=== PATIENT | female | born 1995 | race Caucasian/White ===

== ENCOUNTER 2017-04-09 17:46 | Emergency (ER) | payer BC ==
[2017-04-09] MEDS ORDERED: Ibuprofen TAB* 600 MG PO ONE (18:17)
--- NOTE | 2017-04-09 18:20 | UC ---
UC General HPI - HPI Summary HPI Summary: Patient woke up with a fever of 102, body aches and chills, just hurts all over. - History of Current Complaint Stated Complaint: ACHY BODY, FEVER Time Seen by Provider: 04/09/17 18:11 Hx Obtained From: Patient Hx Last Menstrual Period: 12/09/13 Onset/Duration: Sudden Onset, Lasting Hours Timing: Constant Onset Severity: Severe Current Severity: Severe Associated Signs & Symptoms: Positive: Fever, Headache - Allergy/Home Medications Allergies/Adverse Reactions: Allergies Allergy/AdvReac Type Severity Reaction Status Date / Time Acetaminophen [From Tylenol] Allergy Rash Verified 04/09/17 18:20 PMH/Surg Hx/FS Hx/Imm Hx Previously Healthy: Yes - Surgical History Surgical History: None - Family History Known Family History: Negative: Blood Disorder - Social History Alcohol Use: None Substance Use Type: None Smoking Status (MU): Never Smoked Tobacco - Immunization History Vaccination Up to Date: Yes Review of Systems Constitutional: Fever, Chills, Fatigue Skin: Negative Eyes: Negative ENT: Sore Throat Respiratory: Cough Cardiovascular: Negative Gastrointestinal: Negative Genitourinary: Negative Motor: Negative Musculoskeletal: Arthralgia, Myalgia Neurological: Headache Psychological: Negative Is Patient Immunocompromised?: No All Other Systems Reviewed And Are Negative: Yes Physical Exam Triage Information Reviewed: Yes Appearance: Well-Nourished, Ill-Appearing, Pain Distress Vital Signs Reviewed: Yes Eye Exam: Normal ENT: Positive: Pharyngeal erythema, TM dull, Tonsillar swelling, Tonsillar exudate Dental Exam: Normal Neck exam: Normal Neck: Positive: Supple, Nontender, No Lymphadenopathy Respiratory Exam: Normal Respiratory: Positive: Chest non-tender, Lungs clear, Normal breath sounds Cardiovascular Exam: Normal Cardiovascular: Positive: No Murmur, Pulses Normal Abdominal Exam: Normal Abdomen Description: Positive: Nontender, No Organomegaly, Soft Bowel Sounds: Positive: Present Musculoskeletal Exam: Normal Musculoskeletal: Positive: Strength Intact Neurological Exam: Normal Neurological: Positive: Alert, Muscle Tone Normal Psychological Exam: Normal Skin Exam: Normal Course/Dx - Course Course Of Treatment: hx obtained, exam performed ,meds reviewed, rapid strep and flu obtained and are negative. ibuprofen given. reviewed symptoms with patient started on amoxicilin for tonsillitis, advised her to follow up in ER if symptoms worsen or dont improve in 24 hours. - Differential Dx - Multi-Symptom Provider Diagnoses: fever. tonsillitis. body aches. headache Discharge - Discharge Plan Condition: Stable Disposition: HOME Patient Education Materials: Tonsillitis (ED) Referrals: Sue Garcia MD [Primary Care Provider] - Additional Instructions: 1. take the medication as prescribed. 2. If you take a turn for the worse, or are not improving in 24 hours, follow up in the ER.
[2017-04-09 18:26] VITALS: BP 123/61
[2017-04-09] MEDS ORDERED: Amoxicillin PO (*) 500 MG CAP PO ONE (18:47)
== END 2017-04-09 19:03 | disposition home or self-care (01) ==
LOC: UCCORT 17:46
DX: R50.9 Fever, unspecified (principal); J03.90 Acute tonsillitis, unspecified; M79.1 Myalgia; R51 Headache; Z88.6 Allergy status to analgesic agent
CPT/HCPCS: 87502; 87651; 99212; A9270-GY; G0463

== ENCOUNTER 2017-09-24 06:22 | Inpatient (IN) | payer SELFPAY ==
[~2017-09-24 06:22] MED LIST: Buffered Lidocaine 0.9% SYRIN* 5 ML/SYR SYRINGE INTRADERM ONE
[2017-09-24] MEDS ORDERED: Ondansetron INJ* 2 MG/ML VIAL ONE (06:46)
[2017-09-24] MEDS ORDERED: Dexamethasone IV* 4 MG/ML 1 ML (4 MG) ONE (06:46)
[2017-09-24] MEDS ORDERED: ceFAZolin 2 GM in 100 MLS NS (*) BAG IVPB ONE (06:47)
[2017-09-24] MEDS ORDERED: Buffered Lidocaine 0.9% SYRIN* 5 ML/SYR SYRINGE ONE (06:47)
[2017-09-24] MEDS ORDERED: Scopolamine 1.5 mg* PATCH ONE (06:47)
[2017-09-24] MEDS ORDERED: Bupivacaine 0.5% SDV PF* 10-30ML VIAL ONE (07:04)
[2017-09-24] MEDS ORDERED: Methylene Blue 0.5 %* 50 MG/10 ML AMP IV ONE (07:04)
[2017-09-24] MEDS ORDERED: fentaNYL* 50 MCG/ML 2 ML VIAL (100 MCG VIAL) ONE ×3 (07:19→10:47)
[2017-09-24] MEDS ORDERED: Midazolam* 1 MG/ML 2 ML VIAL (2 MG) ONE (07:19)
[2017-09-24] MEDS ORDERED: Rocuronium* 10 MG/ML VIAL ONE (07:38)
[2017-09-24] MEDS ORDERED: Propofol* 10 MG/ML 20 ML BTL IV PUSH ONE (07:38)
[2017-09-24] MEDS ORDERED: Hetastarch in NS* 500 ML IV ONE (08:25)
[2017-09-24] MEDS ORDERED: fentaNYL* 50 MCG/ML 2 ML VIAL (100 MCG VIAL) IV PRN (08:27)
[2017-09-24] MEDS ORDERED: HYDROmorphone INJ* 1 MG/ML CARPUJECT SYRINGE IV PRN (08:27)
[2017-09-24] MEDS ORDERED: Ondansetron INJ* 2 MG/ML VIAL IV PRN ×2 (08:27→11:34)
[2017-09-24] MEDS ORDERED: PROCHLORPERAZINE INJ 5 MG/ML 2 ML VIAL IV PRN (08:27)
[2017-09-24] MEDS ORDERED: oxyCODONE TAB* 5 MG TAB PO PRN (08:27)
[2017-09-24] MEDS ORDERED: Naloxone* 0.4 MG/ML 1 ML VIAL IV PRN (08:27)
[2017-09-24] MEDS ORDERED: diPHENhydraMINE IV* 50 MG/ML 1 ml VIAL (BENADRYL) IV PRN ×2 (08:27→13:38)
[2017-09-24] MEDS ORDERED: Magnesium Hydroxide LIQ* 30 ML UDC PO PRN (11:47)
[2017-09-24] MEDS ORDERED: diPHENhydraMINE IV* 25 MG in NS 0.9% 50 ML* 50 ML IVPB PRN (11:47)
[2017-09-24] MEDS ORDERED: diPHENhydraMINE PO* 25 MG PO PRN ×2 (11:47)
[2017-09-24] MEDS ORDERED: Al Hydrox/Mg Hydrox/Simet LIQ* 30 ML UDC PO PRN (11:47)
[2017-09-24] MEDS: traMADol TAB* 50 MG PO PRN (13:58)
[2017-09-24] MEDS: HYDROmorphone INJ* 2 MG/ML CARPUJECT SYRINGE IV PRN (19:02)
[2017-09-24] MEDS: Docusate CAP* 100 MG PO SCH (20:33)
[2017-09-25] MEDS: HYDROmorphone INJ* 2 MG/ML CARPUJECT SYRINGE IV PRN ×2 (02:49→08:35)
[2017-09-25] MEDS: traMADol TAB* 50 MG PO PRN (08:37)
[2017-09-25] MEDS: Docusate CAP* 100 MG PO SCH (08:37)
[2017-09-25 08:39] VITALS: BP 93/44
[2017-09-27] MEDS ORDERED: Scopolamine PATCH Remove* 1 NOTE MISC PATCH OFF ONE (08:29)
--- NOTE | 2017-10-04 07:18 | DS ---
CC: Dr. Sekou Keller; Jennifer Lopez NP* DISCHARGE SUMMARY: DATE OF ADMISSION: 09/24/17 DATE OF DISCHARGE: 09/25/17 PRINCIPAL DIAGNOSIS: Cosmetic surgery. SUMMARY: The patient is a 21-year-old white female who lost over 100 pounds over the past 2 years with diet and exercise. She presented with complaints of "loose, flabby" over-hanging skin in the abdomen. Her highest weight was 290 pounds prior to the weight loss, and current weight is 180 pounds, which has been stable for greater than 9 months. Preoperative examination on the body contour demonstrated moderately severe skin laxity in the abdomen with an overhang of up to 3.5 cm. Pinch test in the upper abdomen was 3.3 cm, and lower abdomen was 3.5 cm, in the hips 3.3 cm, in the lateral thighs 3.5 cm. After discussing treatment alternatives, possible benefits and material risks in detail with the patient, she elected to proceed with cosmetic abdominoplasty. The patient was taken to the operating room on 09/24/17 and underwent complete abdominoplasty under general anesthesia. She tolerated the surgery well with no complications. A VAC Prevena dressing was applied at the end of the procedure and 2 Ronal-Wade drains were left in place. Her postoperative convalescent course in the hospital was uncomplicated. By the next morning, she was comfortable and ambulatory. The VAC Prevena dressing was functioning well and left in place. She was discharged home with 2 Ronal- Wade drains in place. Arrangements were made for followup in my office in several days. The patient was given instructions, including activity level, wound care medication, and followup. [id number]/[facility] #: [id number] [facility]EREscobar
== END 2017-09-25 10:50 | disposition home or self-care (01) | DRG 607 ==
LOC: AA 06:22 → SSU 12:45
PROVIDERS: ADMIT Plastic Surgery; ATTEND Plastic Surgery
PROC: 0HB7XZZ Excision of Abdomen Skin, External Approach (ICD-10-PCS; principal; 2017-09-24 07:30)
DX: Z41.1 Encounter for cosmetic surgery (principal); L98.7 Excessive and redundant skin and subcutaneous tissue; Z79.899 Other long term (current) drug therapy; Z88.6 Allergy status to analgesic agent
CPT/HCPCS: 81025; 88300; A9270-GY; J1100; J1170; J2250; J2405; J2704; J3010

== ENCOUNTER 2018-12-21 19:24 | Emergency (ER) | payer BC ==
[2018-12-21 19:33] VITALS: BP 108/70
--- NOTE | 2018-12-21 20:04 | UC ---
Throat Pain/Nasal Garcia HPI - HPI Summary HPI Summary: ONSET OF SORE THROAT AND PAIN WITH SWALLOWING THIS MORNING. NO FEVER, NAUSEA/ VOMITING. NO COUGH OR CONGESTION. IS CONCERNED ABOUT STREP. - History of Current Complaint Chief Complaint: UCRespiratory Stated Complaint: POSSIBLE STREP Time Seen by Provider: 12/21/18 19:48 Hx Obtained From: Patient Hx Last Menstrual Period: 1 MONTH AGO Onset/Duration: Gradual Onset, Lasting Hours, Still Present Severity: Moderate Pain Intensity: 4 Pain Scale Used: 0-10 Numeric Cough: None Associated Signs & Symptoms: Positive: Negative - Allergies/Home Medications Allergies/Adverse Reactions: Allergies Allergy/AdvReac Type Severity Reaction Status Date / Time acetaminophen [From Tylenol] Allergy Rash Verified 12/21/18 19:33 Home Medications: Home Medications Control* 1 tab PO DAILY 12/21/18 [History Confirmed 12/21/18] Hair/Skin/Nail Vitamin* 1 tab PO DAILY 12/21/18 [History Confirmed 12/21/18] PMH/Surg Hx/FS Hx/Imm Hx Previously Healthy: Yes - Surgical History Surgical History: Yes Surgery Procedure, Year, and Place: wisdom teeth extraction in dental office 2011 [place], ABDOMINOPLASTY - Family History Known Family History: Positive: Non-Contributory Negative: Blood Disorder - Social History Alcohol Use: None Alcohol Amount: socially Substance Use Type: None Smoking Status (MU): Never Smoked Tobacco - Immunization History Most Recent Influenza Vaccination: Fall 2016 Most Recent Pneumonia Vaccination: never Vaccination Up to Date: Yes Review of Systems All Other Systems Reviewed And Are Negative: Yes Constitutional: Positive: Fatigue ENT: Positive: Sore Throat Respiratory: Positive: Negative Cardiovascular: Positive: Negative Gastrointestinal: Positive: Negative Physical Exam Triage Information Reviewed: Yes Appearance: Well-Appearing, No Pain Distress, Well-Nourished Vital Signs: Initial Vital Signs Temp 98.7 F 12/21/18 19:30 Pulse 74 12/21/18 19:30 Resp 16 12/21/18 19:30 BP 108/70 12/21/18 19:30 Pulse Ox 100 12/21/18 19:30 Laboratory Tests 12/21/18 19:38 Group A Strep Rapid Negative Eyes: Positive: Conjunctiva Clear ENT: Positive: Hearing grossly normal, TMs normal, Tonsillar exudate. Negative : Pharyngeal erythema, Tonsillar swelling, Muffled voice Neck: Positive: Supple, Tenderness @ - SPFL CERVICAL LAD, Enlarged Nodes @ - SPFL CERVICAL LAD Respiratory Exam: Normal Cardiovascular Exam: Normal Abdomen Description: Positive: Soft Musculoskeletal: Positive: No Edema Neurological: Positive: Alert Psychological: Positive: Age Appropriate Behavior Skin: Negative: Rashes Throat Pain/Nasal Course/Dx - Differential Dx/Diagnosis Provider Diagnosis: Acute tonsillitis Discharge - Sign-Out/Discharge Documenting (check all that apply): Patient Departure All imaging exams completed and their final reports reviewed: No Studies - Discharge Plan Condition: Stable Disposition: HOME Patient Education Materials: Tonsillitis (ED) Forms: *Work Release Referrals: [facility] [Outside] - If Needed Additional Instructions: STREP TEST NEGATIVE. THROAT CULTURE SENT TO CONFIRM. WE WILL CALL YOU IF POSITIVE. YOUR SYMPTOMS ARE LIKELY VIRALLY MEDIATED AND SHOULD RESOLVE ON THEIR OWN WITH TIME. NO INDICATION FOR ANTIBIOTICS AT PRESENT. REST, HYDRATE, OTC MEDS NEEDED. SEEK FOLLOW-UP IF YOU ARE NOT IMPROVING OVER THE NEXT 1-2 WEEKS. CALL THE NUMBER BELOW FOR ASSISTANCE IN ESTABLISHING WITH A PCP An additional resource available to assist in finding the appropriate physician for your health care needs is the [facility] ([facility]). You may contact them by calling [phone]. - Billing Disposition and Condition Condition: STABLE Disposition: Home
== END 2018-12-21 20:00 | disposition home or self-care (01) ==
LOC: UCEAST 19:24
DX: J03.90 Acute tonsillitis, unspecified (principal)
CPT/HCPCS: 87070; 87651; 99211; G0463

== ENCOUNTER 2018-12-25 07:11 | Emergency (ER) | payer BC ==
[2018-12-25 07:38] VITALS: BP 114/70
--- NOTE | 2018-12-25 08:05 | UC ---
Throat Pain/Nasal Garcia HPI - HPI Summary HPI Summary: 4 days of progressively severe sore throat with dysphagia, now with second negative rapid strep and negative full throat culture done on 12/21/18. took 2 doses of amoxicillin yesterday with improvement. 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 - History of Current Complaint Chief Complaint: UCGeneralIllness Stated Complaint: SORE THROAT Time Seen by Provider: 12/25/18 07:41 Hx Obtained From: Patient Hx Last Menstrual Period: 11/24/18 ?: No Onset/Duration: Gradual Onset, Lasting Days - 4 Severity: Moderate Pain Intensity: 8 Cough: None Associated Signs & Symptoms: Positive: Dysphagia. Negative: Sinus Discomfort, Nasal Discharge, Fever - Epiglottits Risk Factors Epiglottis Risk Factors: Negative - Allergies/Home Medications Allergies/Adverse Reactions: Allergies Allergy/AdvReac Type Severity Reaction Status Date / Time acetaminophen [From Tylenol] Allergy Rash Verified 12/21/18 19:33 Home Medications: Home Medications Amoxicillin 1 tab PO ONCE 12/25/18 [History Confirmed 12/25/18] Ibuprofen [Advil] 800 mg PO ONCE 12/25/18 [History Confirmed 12/25/18] PMH/Surg Hx/FS Hx/Imm Hx Previously Healthy: Yes - Surgical History Surgical History: Yes Surgery Procedure, Year, and Place: wisdom teeth extraction in dental office 2011 [place], ABDOMINOPLASTY 2018 - Family History Known Family History: Positive: Non-Contributory Negative: Blood Disorder - Social History Occupation: Employed Full-time Lives: With Family Alcohol Use: Occasionally Alcohol Amount: socially Substance Use Type: None Smoking Status (MU): Never Smoked Tobacco - Immunization History Most Recent Influenza Vaccination: Fall 2016 Most Recent Pneumonia Vaccination: never Vaccination Up to Date: Yes Review of Systems All Other Systems Reviewed And Are Negative: Yes Constitutional: Positive: Fatigue Skin: Positive: Negative Eyes: Positive: Negative ENT: Positive: Sore Throat Respiratory: Negative: Shortness Of Breath, Cough Gastrointestinal: Positive: Other - abdominal sensitivity persistent since abdominoplasty. Decreased appetite.. Negative: Abdominal Pain Genitourinary: Positive: Negative Motor: Positive: Negative Neurovascular: Positive: Negative Musculoskeletal: Positive: Negative Neurological: Negative: Headache Psychological: Positive: Negative Physical Exam Triage Information Reviewed: Yes Appearance: Ill-Appearing, Pain Distress - mild Vital Signs: Initial Vital Signs Temp 98.6 F 06/06/19 07:32 Pulse 89 12/25/18 07:32 Resp 18 12/25/18 07:32 BP 114/70 12/25/18 07:32 Pulse Ox 100 12/25/18 07:32 Eyes: Positive: Conjunctiva Clear ENT: Positive: Pharyngeal erythema, Tonsillar swelling, Tonsillar exudate - bilateral streaky exudate. Dental Exam: Normal Neck: Positive: Supple, Nontender, Enlarged Nodes @ - large tonsillar nodes, few posterior cervical and occipital nodes. Respiratory: Positive: Lungs clear, Normal breath sounds Cardiovascular: Positive: RRR, No Murmur Abdomen Description: Positive: No Organomegaly, Soft, Other: - diffuse tenderness post abdominoplasty Musculoskeletal Exam: Normal Neurological: Positive: Alert, Muscle Tone Normal Psychological Exam: Normal Skin Exam: Normal Throat Pain/Nasal Course/Dx - Course Course Of Treatment: prednisone to improve swallowing (declined solumedrol injection). Rest, fluids, labs drawn. - Differential Dx/Diagnosis Differential Diagnosis/HQI/PQRI: Laryngitis, Tonsillitis, Other - mono Provider Diagnosis: Tonsillitis with exudate Discharge - Sign-Out/Discharge Documenting (check all that apply): Patient Departure All imaging exams completed and their final reports reviewed: No Studies - Discharge Plan Condition: Stable Disposition: HOME Prescriptions: predniSONE [Prednisone 20 MG TAB] 2 tab PO DAILY #4 tablet Patient Education Materials: Mononucleosis (ED) Referrals: No Primary Care Phys,NOPCP [Primary Care Provider] - Additional Instructions: Findings today suggest a viral tonsillitis, most likely mono given the enlarged lymph nodes. Confirmatory lab tests are pending. use of steroid should decrease tonsillar swelling and allow you to stay hydrated. Side effects include mood change, insomnia, some gi upset. Please take 40mg each of the next 2 mornings with food. You can call for results tomorrow morning if you have not had a call regarding results. - Billing Disposition and Condition Condition: STABLE Disposition: Home
[2018-12-25] MEDS: predniSONE TAB* 20 MG PO ONE (08:22)
[2018-12-25 14:00] LABS: ABS Basophils 0.1 10^3/ul (0-0.2); ABS Monocytes 0.6 10^3/ul (0-0.8); ABS Neutrophils 3.9 10^3/ul (1.5-7.7); Eosinophil % 0.4 %; Hematocrit 40 % (35-47); Hemoglobin 13.6 g/dL (12.0-16.0); Lymphocyte % 51.6 %; Mean Corpuscular HGB Conc 34 g/dL (31-36); Mean Corpuscular Hemoglobin 27 pg (27-31); Mean Corpuscular Volume 80 fL (80-97); Platelet Count 168 10^3/uL (150-450); Red Blood Count 4.95 10^6 /uL (3.70-4.87); Red Cell Distribution Width 14 % (10-15); White Blood Count 9.7 10^3/uL (3.5-10.8)
[2018-12-25 14:06] LABS: Albumin 3.5 g/dL (3.2-5.2); Calcium 8.8 mg/dL (8.6-10.3); Potassium 4.4 mmol/L (3.5-5.0); Total Bilirubin 0.5 mg/dL (0.2-1.0)
[2018-12-25 14:12] LABS: EGFR Non-African American 87.6 (>60); Globulin 3.4 g/dL (2-4); Total Protein 6.9 g/dL (6.4-8.9)
[2018-12-27 12:24] LABS: EBV Capsid Ag IgG Ab Negative (Negative); EBV Capsid Ag IgM Ab Positive (Negative); Epstein-Barr Nuclear Antigen Negative (Negative)
== END 2018-12-25 08:27 | disposition home or self-care (01) ==
LOC: UCCORT 07:11
DX: J03.90 Acute tonsillitis, unspecified (principal)
CPT/HCPCS: 36415; 80053; 85025; 86308; 86664; 86665; 87651; 99212; G0463; J7512

== ENCOUNTER 2019-10-08 10:19 | Emergency (ER) | payer BC ==
[2019-10-08] MEDS ORDERED: Lidocaine PATCH 5%* 1 PATCH TRANSDERM ONE (10:34)
[2019-10-08] MEDS ORDERED: Cyclobenzaprine TAB* 10 MG PO ONE (10:34)
--- NOTE | 2019-10-08 10:34 | ED ---
Back Pain - HPI Summary HPI Summary: 23 year old female presents with back pain since yesterday. States she was leaning down and felt a pull on her back. States is worse when she moves. She had a similar pain many months ago. She denies any pain into her legs. No numbness or tingling. No loss of bladder or bowel. No saddle anesthesia. She denies any fevers fevers. Has no medical conditions. Has been taking ibuprofen for pain. - History of Current Complaint Chief Complaint: EDBackInjuryPain Stated Complaint: BACK PAIN PER PT Time Seen by Provider: 10/08/19 10:25 Hx Last Menstrual Period: 11/24/18 Pain Intensity: 6 - Allergies/Home Medications Allergies/Adverse Reactions: Allergies Allergy/AdvReac Type Severity Reaction Status Date / Time acetaminophen [From Tylenol] Allergy Rash Verified 10/08/19 10:23 Home Medications: Home Medications Cyclobenzaprine TAB* [Flexeril 10 MG TAB*] 10 mg PO TID PRN #15 tab 10/08/19 [Rx ] Etonogest/Eth.estradiol (Nf) [Nuvaring Vaginal Ring] 1 each VAGINAL ONCE [History Confirmed 10/08/19] PMH/Surg Hx/FS Hx/Imm Hx Endocrine/Hematology History: Denies: Hx Diabetes, Hx Thyroid Disease Respiratory History: Denies: Hx Asthma - Surgical History Surgery Procedure, Year, and Place: wisdom teeth extraction in dental office 2012 [place], ABDOMINOPLASTY 2018 Hx Anesthesia Reactions: No Infectious Disease History: No Infectious Disease History: Denies: Traveled Outside the [place] in Last 30 Days - Family History Known Family History: Positive: Non-Contributory Negative: Blood Disorder - Social History Alcohol Use: Occasionally Alcohol Amount: socially Substance Use Type: Reports: None Smoking Status (MU): Never Smoked Tobacco Review of Systems Negative: Fever Negative: Chest Pain Negative: Shortness Of Breath Positive: Myalgia - back pain All Other Systems Reviewed And Are Negative: Yes Physical Exam Triage Information Reviewed: Yes Vital Signs On Initial Exam: Initial Vitals Temp Pulse Resp BP Pulse Ox 99.2 F 75 16 116/80 100 10/08/19 10:21 10/08/19 10:21 10/08/19 10:21 10/08/19 10:21 10/08/19 10:21 Vital Signs Reviewed: Yes Appearance: Positive: Well-Appearing Skin: Positive: Warm, Dry Head/Face: Positive: Normal Head/Face Inspection Eyes: Positive: Normal, Conjunctiva Clear ENT: Positive: Pharynx normal Respiratory/Lung Sounds: Positive: Clear to Auscultation, Breath Sounds Present Cardiovascular: Positive: Normal, RRR Musculoskeletal: Positive: Strength/ROM Intact - back pain, Other - tenderness in back pain, neg SLR, good pulses, sensation grossly intact, Neurological: Positive: Normal, Reflexes Intact - patella Psychiatric: Positive: Normal Procedures - Sedation Patient Received Moderate/Deep Sedation with Procedure: No Diagnostics - Vital Signs Vital Signs Temp Pulse Resp BP Pulse Ox 10/08/19 10:21 99.2 F 75 16 116/80 100 - Laboratory Lab Statement: Any lab studies that have been ordered have been reviewed, and results considered in the medical decision making process. - Radiology back Radiology Interpretation Completed By: Radiologist Summary of Radiographic Findings: IMPRESSION: No evidence of fracture or subluxation. Back Pain Course/Dx - Course Course Of Treatment: 23 year old female presents with back pain since yesterday. States she was leaning down and felt a pull on her back. States is worse when she moves. She had a similar pain many months ago. She denies any pain into her legs. No numbness or tingling. No loss of bladder or bowel. No saddle anesthesia. She denies any fevers fevers. Has no medical conditions. Has been taking ibuprofen for pain. On exam tenderness lower back. Neurovascularly intact. X-ray shows no fracture. will treat with short course of muscle relaxer. told follow up with primary. patient understand and agrees with plan. - Diagnoses Differential Diagnosis/HQI/PQRI: Positive: Fracture, Strain, Sprain Provider Diagnoses: Back pain Discharge ED - Sign-Out/Discharge Documenting (check all that apply): Patient Departure - Discharge Plan Condition: Good Disposition: HOME Prescriptions: Cyclobenzaprine TAB* [Flexeril 10 MG TAB*] 10 mg PO TID PRN #15 tab PRN Reason: Pain - Moderate Patient Education Materials: Back Pain (ED) Forms: *Work Release Referrals: [facility] [Outside] Additional Instructions: Take muscle relaxers three times a day Apply lidocaine patches to area for up to 12 hours in one 24 hour period Use ibuprofen for pain every 6 hours ice/heat area, move as much as possible Follow up with primary within 5 days Return to ED if develop any new or worsening symptoms - Billing Disposition and Condition Condition: GOOD Disposition: Home - Attestation Statements Provider Attestation: I was available for consultation for this patient. I did not evaluate the patient or participate in any medical decision making or disposition decisions unless I am specifically named in the chart as having consulted on the patient. If I have consulted on the patient, please see my own ED note on the patient encounter. Abdelrahman Arevalo MD
[2019-10-08 11:33] VITALS: BP 109/57
[2019-10-08] MEDS ORDERED: Lidocaine Patch REMOVE* 1 NOTE MISC SCH (21:00)
== END 2019-10-08 11:32 | disposition home or self-care (01) ==
LOC: ED 10:19
DX: M54.9 Dorsalgia, unspecified (principal); Z88.8 Allergy status to other drugs, medicaments and biological substances
CPT/HCPCS: 72110; 99282; A9270-GY